=== PATIENT | female | born 1960 | race Caucasian/White ===

== ENCOUNTER → 2020-01-05 | Outpatient (CLI) | payer MEDICAID, MEDICARE ==
[~2020-01-05] MED LIST: ACET-2267 PO; ASPI-9 PO; ASPI325T32 PO; ATOR40TA70 PO; AZIT250T12 PO; FLUO20CA46 PO; IBUP-30 PO; METO-333 PO; OMEP20CA18 PO; OMEP20TA7 PO; OXYC-471 PO; RT-ALBUINH IH; SENN1TAB67 PO; TIOT18CA2 IH; TRZ50T PO
== END ==
LOC: CARD 12:30
PROVIDERS: ATTEND Internal Medicine Cardiovascular Disease
DX: I25.708 Atherosclerosis of coronary artery bypass graft(s), unspecified, with other forms of angina pectoris (principal); J44.9 Chronic obstructive pulmonary disease, unspecified; I10 Essential (primary) hypertension; E78.2 Mixed hyperlipidemia
CPT/HCPCS: 93306

== ENCOUNTER → 2020-01-16 | Outpatient (CLI) | payer MEDICAID, MEDICARE ==
[~2020-01-16] VITALS: Ht 172 cm; Wt 82.0 kg
[~2020-01-16] MED LIST changes: +CATHETER FLUSH 10 ML SYR IV PRN; +REGADENOSON 0.4 MG/5 ML SYR (LEXISCAN) IV ONE
[2020-01-16 09:33] VITALS: BP 127/74
--- NOTE | 2020-01-16 11:54 | Cardiology Stress Test Report ---
Stress Test Report Date of Procedure/Referring: Date of Procedure: Jan 16, 2020 PCP Irvin Gentile MD Admitting Physician Brenda Vitale DO Indications: Hypertension Baseline Heart Rate: 70 Baseline Blood Pressure: Blood Pressure Systolic: 127 Blood Pressure Diastolic: 74 Baseline Vitals Vital Signs Date Time Temp Pulse Resp B/P (MAP) Pulse Ox O2 Delivery O2 Flow Rate FiO2 01/16/20 09:33 71 127/74 (91) 99 Baseline EKG: Baseline EKG: normal sinus rhythm Summary After explaining the procedure to the patient, she signed a consent and then brought to the stress nuclear laboratory. Patient received 0.4 mg Lexiscan for stress test, ECG, heart rate and blood pressure were monitored continuously. Resting and stress dose of radio tracer were injected, imaging was acquired and reviewed in short axis, horizontal long axis and vertical long axis views. TID: 1.11 SSS: 5 SDS: 3 EF: 57 1. Patient tolerated Lexiscan well 2. Mild extracardiac attenuation affecting the quality of the images, mild decreased uptake involving the mid inferior wall with subtle reversibility. No significant ischemia or infarction was noted 3. Normal left ventricular size, EF 57 percent IRVIN GENTILE MD Jan 16, 2020 11:54
== END ==
PROVIDERS: ATTEND Internal Medicine Cardiovascular Disease
DX: I25.708 Atherosclerosis of coronary artery bypass graft(s), unspecified, with other forms of angina pectoris (principal); J44.9 Chronic obstructive pulmonary disease, unspecified; I10 Essential (primary) hypertension; E78.2 Mixed hyperlipidemia
CPT/HCPCS: 78452; 93017; A9502

== ENCOUNTER 2022-08-30 08:59 | Observation (INO) | payer MEDICARE, MEDICAID ==
[~2022-08-30] VITALS: Ht 170.2 cm; Wt 67.0 kg
[~2022-08-30 08:59] MED LIST changes: +ALBU8.5H6 IH; -CATHETER FLUSH 10 ML SYR IV PRN; -FLUO20CA46 PO; +FLUO20CA48 PO; +OMEP20TA56 PO; -OMEP20TA7 PO; -OXYC-471 PO; +OXYC1TAB11 PO; -REGADENOSON 0.4 MG/5 ML SYR (LEXISCAN) IV ONE; -RT-ALBUINH IH
[2022-08-30 09:42] LABS: BASOPHILS % (AUTO) 0 % (0-10); EOSINOPHILS % (AUTO) 0 % (0-10); HEMATOCRIT 35 % (35-52); HEMOGLOBIN 12.6 g/dL (11.5-16.0); LYMPHOCYTES # (AUTO) 1.2 10^3/uL (1.0-4.0); LYMPHOCYTES % (AUTO) 3 % (12-44); MEAN CORPUSCULAR HEMOGLOBIN 34 pg (25-34); MEAN CORPUSCULAR HGB CONC 36 g/dL (32-36); MEAN CORPUSCULAR VOLUME 94 fL (80-99); MEAN PLATELET VOLUME 9.6 fL (9.0-12.2); MONOCYTES # (AUTO) 0.1 10^3/uL (0.0-1.0); MONOCYTES % (AUTO) 0 % (0-12); NEUTROPHILS # (AUTO) 35.4 10^3/uL (1.8-7.8); NEUTROPHILS % (AUTO) 85 % (42-75); PLATELET COUNT 422 10^3/uL (130-400)
--- NOTE | 2022-08-30 09:44 | ED Abdominal Pain ---
General Chief Complaint: Abdominal/GI Problems Stated Complaint: DEHYDRATION, NO BM [id number] Nursing Triage Note: Patient c/o no BM x 6 days with nausea and vomiting starting yesterday. Patient states she has vomited x 4 in last 24 hrs. Patient states she has nausea medication, but states she vomits that up. Patient states she has tried some stool softners with no relief in symptoms. Patient states she is currently being treated for lung CA. Source of Information: Patient Exam Limitations: No Limitations History of Present Illness Date Seen by Provider: Aug 30, 2022 Time Seen by Provider: 09:22 Initial Comments This 61-year-old woman presents to the emergency room with complaints of severe abdominal pain and vomiting over the past 2 days. She has been constipated with small hard stools recently and has not produced a bowel movement in perhaps up to 6 days. 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 She received chemotherapy treatments earlier this week. This was her second round of treatment. She has Zofran and Compazine but has not been able to swallow them today. She feels her abdomen is bloated. She feels dehydrated and mucous membranes are pasty. Allergies and Home Medications Allergies Coded Allergies: Penicillins (Verified Allergy, Severe, 04/11/15) latex (Verified Allergy, Intermediate, RASH, 02/29/16) Patient states that the area of skin where the latex touches for long periods of time, peels, oozes and itches. Patient Home Medication List Home Medication List Reviewed: Yes Albuterol Sulfate (Ventolin Hfa) 90 Mcg Hfa.aer.ad, 2 PUFF PUFF PRN, (Reported) Entered as Reported by: CHENCHO PHILLIPS on 08/30/22 1549 Last Action: Reviewed Aspirin (Aspirin EC) 325 Mg Tablet.dr, 325 MG PO HS, (Reported) Entered as Reported by: DARREN RAMESH on 04/12/15 0839 Last Action: Reviewed Atorvastatin Calcium (Atorvastatin Calcium) 10 Mg Tablet, 10 MG PO HS, (Reported) Entered as Reported by: CHENCHO PHILLIPS on 08/30/22 1535 Last Action: Reviewed Fluticasone/Salmeterol (Advair Hfa 115-21 Mcg Inhaler) 115 Mcg-21 Mcg/Actuation Hfa.aer.ad, 12 GM IH HS, (Reported) Entered as Reported by: CHENCHO PHILLIPS on 08/30/221548 Last Action: Reviewed Ibuprofen (Advil) 200 Mg Tablet, 400 MG PO BID PRN for PAIN, (Reported) Entered as Reported by: DARREN RAMESH on 04/12/15 0839 Last Action: Reviewed Lisinopril/Hydrochlorothiazide (Lisinopril-Hctz 20-12.5 mg Tab) 20 Mg-12.5 Mg Tablet, 1 EACH PO 1800, (Reported) Entered as Reported by: CHENCHO PHILLIPS on 08/30/22 153 Last Action: Edited Nicotine (Nicotine Patch) 21 Mg/24 Hour Patch.td24, 21 MG TD HS, (Reported) Entered as Reported by: CHENCHO PHILLIPS on 08/30/22 154 Last Action: Reviewed Ondansetron HCl (Ondansetron HCl) 8 Mg Tablet, 8 MG PO 8-12 HR PRN for NAUSEA/VOMITING, (Reported) Entered as Reported by: CHENCHO PHILLIPS on 08/30/22 154 Last Action: Reviewed Prochlorperazine Maleate (Compazine) 10 Mg Tablet, 10 MG PO Q4-6, (Reported) Entered as Reported by: CHENCHO PHILLIPS on 08/30/221532 Last Action: Reviewed Trazodone HCl (Trazodone HCl) 50 Mg Tablet, 50 MG PO HS, (Reported) Entered as Reported by: CHENCHO PHILLIPS on 08/30/22 154 Last Action: Reviewed Umeclidinium [place] (Incruse Ellipta) 62.5 Mcg/Actuation Blst.w.dev, 1 MCG IH HS, (Reported) Entered as Reported by: CHENCHO PHILLIPS on 08/30/22 155 Last Action: Reviewed Discontinued Medications Acetaminophen (Tylenol Extra Strength) 500 Mg Tablet, 500-1,000 MG PO Q6H PRN for PAIN, (Reported) Discontinued Reason: No Longer Taking Entered as Reported by: DARREN RAMESH on 02/29/16 1006 Last Action: Discontinued Albuterol Sulfate (Ventolin Hfa) 8.5 Gm Hfa.aer.ad, 1-2 PUFF IH Q4H PRN for SHORTNESS OF BREATH, (Reported) Discontinued Reason: No Longer Taking Entered as Reported by: DARREN RAMESH on 02/29/16 1006 Last Action: Discontinued Atorvastatin Calcium (Atorvastatin Calcium) 40 Mg Tablet, 40 MG PO 1700, (Reported) Discontinued Reason: No Longer Taking Entered as Reported by: DARYN PATE on 04/11/151555 Last Action: Discontinued Metoprolol Tartrate (Metoprolol Tartrate) 25 Mg Tablet, 12.5 MG PO BID, (Reported) Discontinued Reason: No Longer Taking Entered as Reported by: DARREN RAMESH on 02/29/16 0959 Last Action: Discontinued Tiotropium [place] (Spiriva) 1 Inh Aerp, 1 CAP IH DAILY, (Reported) Discontinued Reason: No Longer Taking Entered as Reported by: DARYN PATE on 04/11/151555 Last Action: Discontinued Review of Systems Review of Systems Constitutional: no symptoms reported EENTM: No Symptoms Reported Respiratory: See HPI Cardiovascular: No Symptoms Reported Gastrointestinal: See HPI Genitourinary: Other (Dark urine) Musculoskeletal: no symptoms reported Skin: no symptoms reported Endocrine: No Symptoms Reported Hematologic/Lymphatic: No Symptoms Reported Past Yrvgzpd-Jfjxgs-Ixhpmr Hx Patient Social History Tobacco Use?: No Smoking Status: Former Smoker Use of E-Cig and/or Vaping dev: No Substance use?: Yes Substance type: Marijuana Alcohol Use?: No Immunizations Up To Date Tetanus Booster (TDap): Less than 5yrs PED Vaccines UTD: No Influenza Vaccine Up-to-Date: No; Not Current Seasonal Allergies Seasonal Allergies: Yes Past Medical History Surgeries: Yes Cardiac, CABG, Hysterectomy, Oophorectomy, Orthopedic Respiratory: Yes COPD Currently Using CPAP: No Currently Using BIPAP: No Cardiac: Yes Coronary Artery Disease, High Cholesterol Neurological: No 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 Disorders: No WINERY CELLAR HAND History: Hysterectomy Gastrointestinal: Yes Gastroesophageal Reflux, Ulcer Musculoskeletal: No Endocrine: No HEENT: No Cancer: Yes Brain (From a lung primary), Lung Anxiety, PTSD, Depression Adverse Reaction/Blood Tranf: No Family Medical History Congenital disease Congenital heart disease Diabetes mellitus G8 BROTHER FH: congestive heart failure 19 FATHER 19 MOTHER G8 BROTHER Physical Exam Vital Signs Vital Signs - First Documented 08/30/22 08/30/22 09:05 14:46 Temp 36.2 Pulse 74 Resp 14 B/P (MAP) 107/81 (90) Pulse Ox 96 O2 Delivery Room Air O2 Flow Rate 2.00 Capillary Refill : Height/Weight/BMI Height: 5'10.00" Weight: 153lbs. 0.0oz. 69.597111ui; 22.00 BMI Method:Stated General Appearance: WD/WN, no apparent distress HEENT: PERRL/EOMI, normal ENT inspection, other (Mucous membranes pasty. Significant dental decay) Neck: normal inspection Respiratory: lungs clear, normal breath sounds, no respiratory distress Cardiovascular: regular rate, rhythm, no edema, no murmur Gastrointestinal: normal bowel sounds, soft, distended, tenderness (Significant tenderness to percussion throughout the abdomen) Extremities: normal inspection, no pedal edema Neurologic/Psychiatric: no motor/sensory deficits, alert, normal mood/affect Skin: normal color, warm/dry Progress/Results/Core Measures Results/Orders Lab Results Laboratory Tests Test 08/30/22 09:30 08/30/22 10:45 Range/Units White Blood Count 41.4 *H 4.3-11.0 10^3/uL Red Blood Count 3.76 L 3.80-5.11 10^6/uL Hemoglobin 12.6 11.5-16.0 g/dL Hematocrit 35 35-52 % Mean Corpuscular Volume 94 80-99 fL Mean Corpuscular Hemoglobin 34 25-34 pg Mean Corpuscular Hemoglobin Concent 36 32-36 g/dL Red Cell Distribution Width 13.3 10.0-14.5 % Platelet Count 422 H 130-400 10^3/uL Mean Platelet Volume 9.6 9.0-12.2 fL Immature Granulocyte % (Auto) 11 % Neutrophils (%) (Auto) 85 H 42-75 % Lymphocytes (%) (Auto) 3 L 12-44 % Monocytes (%) (Auto) 0 0-12 % Eosinophils (%) (Auto) 0 0-10 % Basophils (%) (Auto) 0 0-10 % Neutrophils # (Auto) 35.4 H 1.8-7.8 10^3/uL Lymphocytes # (Auto) 1.2 1.0-4.0 10^3/uL Monocytes # (Auto) 0.1 0.0-1.0 10^3/uL Eosinophils # (Auto) 0.0 0.0-0.3 10^3/uL Basophils # (Auto) 0.0 0.0-0.1 10^3/uL Immature Granulocyte # (Auto) 4.7 H 0.0-0.1 10^3/uL Neutrophils % (Manual) 92 % Lymphocytes % (Manual) 7 % Monocytes % (Manual) 0 % Eosinophils % (Manual) 0 % Basophils % (Manual) 0 % Band Neutrophils 1 % Blood Morphology Comment NORMAL Sodium Level 130 L 135-145 MMOL/L Potassium Level 3.3 L 3.6-5.0 MMOL/L Chloride Level 93 L 98-107 MMOL/L Carbon Dioxide Level 26 21-32 MMOL/L Anion Gap 11 5-14 MMOL/L Blood Urea Nitrogen 12 7-18 MG/DL Creatinine 0.76 0.60-1.30 MG/DL Estimat Glomerular Filtration Rate 90 BUN/Creatinine Ratio 16 Glucose Level 107 H 70-105 MG/DL Calcium Level 9.8 8.5-10.1 MG/DL Corrected Calcium 9.7 8.5-10.1 MG/DL Magnesium Level 1.8 1.6-2.4 MG/DL Total Bilirubin 1.1 H 0.1-1.0 MG/DL Aspartate Amino Transf (AST/SGOT) 38 H 5-34 U/L Alanine Aminotransferase (ALT/SGPT) 59 H 0-55 U/L Alkaline Phosphatase 175 H 40-136 U/L C-Reactive Protein High Sensitivity 1.63 H 0.00-0.50 MG/DL Total Protein 8.6 H 6.4-8.2 GM/DL Albumin 4.1 3.2-4.5 GM/DL Lipase 12 8-78 U/L Urine Color YELLOW Urine Clarity CLEAR Urine pH 6.5 5-9 Urine Specific [place] 1.010 L 1.016-1.022 Urine Protein NEGATIVE NEGATIVE Urine Glucose (UA) NEGATIVE NEGATIVE Urine Ketones 1+ H NEGATIVE Urine Nitrite NEGATIVE NEGATIVE Urine Bilirubin NEGATIVE NEGATIVE Urine Urobilinogen 2.0 < = 1.0 MG/DL Urine Leukocyte Esterase NEGATIVE NEGATIVE Urine RBC (Auto) NEGATIVE NEGATIVE Urine RBC NONE /HPF Urine WBC RARE /HPF Urine Squamous Epithelial Cells RARE /HPF Urine Crystals NONE /LPF Urine Bacteria TRACE /HPF Urine Casts NONE /LPF Urine Mucus SMALL H /LPF Urine Culture Indicated NO My Orders Orders - MARILUZ DICKSON MD Ondansetron Injection (Zofran Injectio (08/30/22 09:45) Cbc With Automated Diff (08/30/22 09:35) Comprehensive Metabolic Panel (08/30/22 09:35) Hs C Reactive Protein (08/30/22 09:35) Lipase (08/30/22 09:35) Magnesium (08/30/22 09:35) Ua Culture If Indicated (08/30/22 09:35) Ed Iv/Invasive Line Start (08/30/22 09:35) Lactated Ringers (Lr 1000 Ml Iv Solution (08/30/22 09:45) Fentanyl Inj (Sublimaze Injection) (08/30/22 09:45) Manual Differential (08/30/22 09:30) Ct Abdomen/Pelvis W (08/30/22 10:21) Iohexol Injection (Omnipaque 350 Mg/Ml 1 (08/30/22 10:30) Received Contrast (Hold Metformin- Contr (08/30/22 10:30) Ns (Ivpb) (Sodium Chloride 0.9% Ivpb Bag (08/30/22 10:30) Lidocaine 2% Viscous 15 Ml (Xylocaine Vi (08/30/22 12:00) Ketorolac Injection (Toradol Injection) (08/30/22 12:00) Fentanyl Inj (Sublimaze Injection) (08/30/22 13:45) Medications Given in ED Current Medications Medications Dose Ordered Sig/Dexter Route Start Time Stop Time Status Last Admin Dose Admin Fentanyl Citrate 50 mcg ONCE ONCE IVP 08/30/22 09:45 08/30/22 09:46 DC 08/30/22 09:45 50 MCG Fentanyl Citrate 50 mcg ONCE ONCE IVP 08/30/22 13:45 08/30/22 13:46 DC 08/30/22 13:55 50 MCG Iohexol 100 ml ONCE ONCE IV 08/30/22 10:30 08/30/22 10:31 DC 08/30/22 10:33 78 ML Ketorolac Tromethamine 30 mg ONCE ONCE IVP 08/30/22 12:00 08/30/22 12:01 DC 08/30/22 12:06 30 MG Lactated Ringer's 1,000 ml @ 0 mls/hr Q0M ONCE IV 08/30/22 09:45 08/30/22 09:46 DC 08/30/22 09:45 0 MLS/HR Lidocaine HCl 5 ml ONCE ONCE MM 08/30/22 12:00 08/30/22 12:01 DC 08/30/22 12:09 5 ML Ondansetron HCl 8 mg ONCE ONCE IVP 08/30/22 09:45 08/30/22 09:46 DC 08/30/22 09:46 8 MG Sodium Chloride 100 ml ONCE ONCE IV 08/30/22 10:30 08/30/22 10:31 DC 08/30/22 10:33 80 ML Vital Signs/I&O 08/30/22 08/30/22 09:05 14:46 Temp 36.2 Pulse 74 55 Resp 14 14 B/P (MAP) 107/81 (90) 116/76 Pulse Ox 96 96 O2 Delivery Room Air Nasal Cannula O2 Flow Rate 2.00 Blood Pressure Mean: 90 Progress Progress Note #1: Time: 11:03 Progress Note Patient was interviewed and examined. She was found to have significant abdominal tenderness to light percussion. Labs were obtained. Marked leukocytosis of 41,000 was noted. CMP was grossly unremarkable, and there were no major electrolyte abnormalities. Lipase and CRP were unremarkable. Sodium and potassium were both slightly low. Pain was treated with fentanyl and nausea was treated with Zofran. Pain was later treated with Toradol as well. Further evaluation of her abdominal pain and leukocytosis is being pursued with CT of the abdomen and pelvis. Labs have been obtained, reviewed, and interpreted by me. CBC was notable for marked leukocytosis. Progress Note #2: Progress Note No emergent acute abnormalities were found on a CT of the abdomen and pelvis. CT was viewed by me. By my interpretation calcified gallstones were appreciated without evidence of cholecystitis as there was no pericholecystic fluid or gallbladder wall thickening. No other inflammatory conditions were identified. Formed stool was noted throughout the colon suggesting constipation. Radiologist's report was reviewed and correlated well with my interpretation. I discussed the case with Dr. Patrick who recommended manual disimpaction followed by soapsuds enemas. Patient consented to the manual disimpaction. Patient received Toradol and fentanyl prior to the disimpaction. I was able to extract a significant amount of hard stool from the rectum manually. Viscous lidocaine was used for lubrication to help with pain control. Patient felt some relief of pressure and was satisfied with the disimpaction. She was admitted for further observation and supportive care. Diagnostic Imaging Diagonstic Imaging: CT Plain Films/CT/US/NM/MRI: abdomen, pelvis Comments NAME: ANNAMARIENYU [facility] MED REC#: [id number] PT STATUS: REG ER : 1960 PHYSICIAN: MARILUZ DICKSON MD ADMIT DATE: 08/30/22/ER Signed Date of Exam:08/30/22 CT ABDOMEN/PELVIS W PROCEDURE: CT abdomen and pelvis with contrast. TECHNIQUE: Multiple contiguous axial images were obtained through the abdomen and pelvis after administration of intravenous contrast. Auto Exposure Controls were utilized during the CT exam to meet ALARA standards for radiation dose reduction. All CT scans use one or more of the following dose optimizing techniques: automated exposure control, MA and/or KvP adjustment based on patient size and exam type or iterative reconstruction. DATE: August 30, 2022. COMPARISON: None. INDICATION: 61-year-old female, no bowel movement for 6 days. Nausea and vomiting. History of lung cancer. FINDINGS: The visualized portions of the lung bases are clear. The heart is not enlarged. There is no identified pericardial effusion. The liver is unremarkable in size and contour. There is a benign cyst in the left lobe of liver on axial image 42 measuring 10 mm in size. Internal attenuation measures 7 Hounsfield units. There is no otherwise identified liver lesion. The main, right, and left veins are patent. There is cholelithiasis without evidence of acute cholecystitis. There is no intrahepatic or extrahepatic bile duct dilation. The main pancreatic duct is not abnormally dilated. Unremarkable appearance of the pancreatic parenchyma. The spleen is normal in size. There is a low-attenuation in the left adrenal nodule on axial image 43 which measures 15 mm in size. Internal attenuation on this postcontrast study is 33 Hounsfield units which is indeterminate. Unremarkable appearance of the renal parenchyma. The urinary collecting systems are not distended. There is no identified renal or ureteral stone. Urinary bladder is unremarkable. There are pelvic calcifications compatible with phleboliths. The uterus is not seen and may be surgically absent. The intestinal tract is not distended. The appendix is unremarkable. There is a moderate volume colonic stool. There is no free intraperitoneal air. There is no drainable fluid collection. There is no sizable volume free fluid in the abdomen or pelvis. There are atherosclerotic calcifications. There is ectasia of the infrarenal abdominal aorta on axial image 82 measuring up to 2.3 cm in diameter. There is no identified abnormally enlarged lymph node in the abdomen or pelvis which meets CT size criteria for adenopathy. There are degenerative changes of the spine. IMPRESSION: CT ABDOMEN AND PELVIS. 1. No identified acute abnormality in the abdomen or pelvis. 2. Moderate to large volume colonic stool. 3. Cholelithiasis without evidence of acute cholecystitis. 4. Indeterminate 15 mm left adrenal nodule. If this is not of known etiology, nonemergent outpatient adrenal mass protocol CT or MRI without and with intravenous contrast would be recommended for further assessment. Dictated by: Dictated on workstation # [id number] Dict: 08/30/22 1044 Trans: 08/30/22 1116 [facility] [id number] Interpreted by: OMAYRA GROSS MD Electronically signed by: OMAYRA GROSS MD 08/30/22 1116 Departure Communication (Admissions) Time/Spoke to Admitting Phy: 13:30 Dr. Ace Time/Spoke to Consulting Phy: 12:36 Dr. Patrick Impression Primary Impression: Nausea and vomiting Qualified Codes: R11.2 - Nausea with vomiting, unspecified Additional Impressions: Constipation Qualified Codes: K59.00 - Constipation, unspecified Abdominal pain Qualified Codes: R10.84 - Generalized abdominal pain Leukocytosis Qualified Codes: D72.829 - Elevated white blood cell count, unspecified Small cell lung cancer Disposition: ADMITTED INPATIENT Condition: Improved Admissions Decision to Admit Reason: Admit from ER (General) Decision to Admit/Date: Aug 30, 2022 Time/Decision to Admit Time: 12:36 Departure-Patient Inst. Referrals: ANASTASIA SHARPE APRN (PCP) Primary Care Physician SHARA GASCA (Family) Primary Care Physician MARILUZ DICKSON MD Aug 30, 2022 09:44
[2022-08-30] MEDS ORDERED: fentaNYL INJ 100 MCG/2 ML AMP IVP ONE ×2 (09:45→13:45)
[2022-08-30] MEDS ORDERED: ONDANSETRON 4 MG/2 ML (SDV) Z0FRAN IVP ONE (09:45)
[2022-08-30] MEDS ORDERED: LACTATED RINGERS 1,000 ML IV ONE (09:45)
[2022-08-30 09:46] LABS: WHITE BLOOD COUNT 41.4 10^3/uL (4.3-11.0)
[2022-08-30 09:55] LABS: ALBUMIN 4.1 GM/DL (3.2-4.5); POTASSIUM 3.3 MMOL/L (3.6-5.0)
[2022-08-30 09:56] LABS: CALCIUM 9.8 MG/DL (8.5-10.1)
[2022-08-30 09:57] LABS: TOTAL PROTEIN 8.6 GM/DL (6.4-8.2)
[2022-08-30 09:59] LABS: BILIRUBIN,TOTAL 1.1 MG/DL (0.1-1.0)
[2022-08-30 10:01] LABS: CREATININE SERUM 0.76 MG/DL (0.60-1.30)
[2022-08-30 10:04] LABS: MAGNESIUM 1.8 MG/DL (1.6-2.4)
[2022-08-30 10:11] LABS: BAND NEUTROPHILS 1 %; BASOPHILS % (MANUAL) 0 %; EOSINOPHILS % (MANUAL) 0 %; LYMPHOCYTES % (MANUAL) 7 %; MONOCYTES % (MANUAL) 0 %; NEUTROPHILS % (MANUAL) 92 %; RBC MORPH NORMAL
[2022-08-30] MEDS ORDERED: NS 100 ML (IVPB) BAG IV ONE (10:30)
[2022-08-30] MEDS ORDERED: HOLD METFORMIN - RECEIVED CONTRAST 20 ML VIAL IV SCH (10:30)
[2022-08-30] MEDS ORDERED: IOHEXOL 350 MG/ML 100 ML (OMNIPAQUE 350) VIAL IV ONE (10:30)
[2022-08-30 10:55] LABS: BILIRUBIN,URINE NEGATIVE (NEGATIVE); CLARITY,URINE CLEAR; COLOR,URINE YELLOW; GLUCOSE, URINE (UA) NEGATIVE (NEGATIVE); KETONES,URINE 1+ (NEGATIVE); LEUKOCYTE ESTERASE ,URINE NEGATIVE (NEGATIVE); NITRITE,URINE NEGATIVE (NEGATIVE); PH,URINE 6.5 (5-9); PROTEIN,URINE NEGATIVE (NEGATIVE)
[2022-08-30 11:02] LABS: BACTERIA,URINE TRACE /HPF; SQUAMOUS EPITHELIAL CELL,UR RARE /HPF; WBC,URINE RARE /HPF
--- NOTE | 2022-08-30 11:04 | Diagnostic Imaging Report ---
PROCEDURE: CT abdomen and pelvis with contrast. TECHNIQUE: Multiple contiguous axial images were obtained through the abdomen and pelvis after administration of intravenous contrast. Auto Exposure Controls were utilized during the CT exam to meet ALARA standards for radiation dose reduction. All CT scans use one or more of the following dose optimizing techniques: automated exposure control, MA and/or KvP adjustment based on patient size and exam type or iterative reconstruction. DATE: August 30, 2022. COMPARISON: None. INDICATION: 61-year-old female, no bowel movement for 6 days. Nausea and vomiting. History of lung cancer. FINDINGS: The visualized portions of the lung bases are clear. The heart is not enlarged. There is no identified pericardial effusion. The liver is unremarkable in size and contour. There is a benign cyst in the left lobe of liver on axial image 42 measuring 10 mm in size. Internal attenuation measures 7 Hounsfield units. There is no otherwise identified liver lesion. The main, right, and left veins are patent. There is cholelithiasis without evidence of acute cholecystitis. There is no intrahepatic or extrahepatic bile duct dilation. The main pancreatic duct is not abnormally dilated. Unremarkable appearance of the pancreatic parenchyma. The spleen is normal in size. There is a low-attenuation in the left adrenal nodule on axial image 43 which measures 15 mm in size. Internal attenuation on this postcontrast study is 33 Hounsfield units which is indeterminate. Unremarkable appearance of the renal parenchyma. The urinary collecting systems are not distended. There is no identified renal or ureteral stone. Urinary bladder is unremarkable. There are pelvic calcifications compatible with phleboliths. The uterus is not seen and may be surgically absent. The intestinal tract is not distended. The appendix is unremarkable. There is a moderate volume colonic stool. There is no free intraperitoneal air. There is no drainable fluid collection. There is no sizable volume free fluid in the abdomen or pelvis. There are atherosclerotic calcifications. There is ectasia of the infrarenal abdominal aorta on axial image 82 measuring up to 2.3 cm in diameter. There is no identified abnormally enlarged lymph node in the abdomen or pelvis which meets CT size criteria for adenopathy. There are degenerative changes of the spine. IMPRESSION: CT ABDOMEN AND PELVIS. 1. No identified acute abnormality in the abdomen or pelvis. 2. Moderate to large volume colonic stool. 3. Cholelithiasis without evidence of acute cholecystitis. 4. Indeterminate 15 mm left adrenal nodule. If this is not of known etiology, nonemergent outpatient adrenal mass protocol CT or MRI without and with intravenous contrast would be recommended for further assessment. Dictated by: Dictated on workstation # [id number]
[2022-08-30] MEDS ORDERED: LIDOCAINE 2% VISCOUS 15 ML UDC MM ONE (12:00)
[2022-08-30] MEDS ORDERED: KETOROLAC 30 MG/ML VIAL IVP ONE (12:00)
[2022-08-30] MEDS ORDERED: ACETAMINOPHEN 500 MG TAB (TYLENOL) PO PRN (15:15)
[2022-08-30] MEDS ORDERED: LISI1TAB46 PO (15:33)
[2022-08-30] MEDS ORDERED: PROC-1 PO (15:33)
[2022-08-30] MEDS ORDERED: ATOR10TA66 PO (15:35)
[2022-08-30] MEDS ORDERED: ONDA-106 PO (15:41)
[2022-08-30] MEDS ORDERED: TRZ50T PO (15:41)
[2022-08-30] MEDS ORDERED: NICO-685 TD (15:49)
[2022-08-30] MEDS ORDERED: FLUT12AE4 IH (15:49)
[2022-08-30] MEDS ORDERED: ALBU8.5H6 PUFF (15:49)
[2022-08-30] MEDS ORDERED: UMEC62.5 IH (15:51)
[2022-08-30 15:52] VITALS: BP 123/58
[2022-08-30] MEDS: LACTATED RINGERS 1,000 ML IV SCH ×2 (15:55→21:32)
[2022-08-30 16:00] VITALS: BP 132/76
[2022-08-30] MEDS: ONDANSETRON 4 MG/2 ML (SDV) Z0FRAN IV PRN ×2 (16:04→20:40)
[2022-08-30] MEDS: polyethylene glycoL POWDER 17 GM (MIRALAX) PACK PO SCH ×2 (16:04→20:40)
[2022-08-30] MEDS: PROMETHAZINE INJ 25 MG/ML (PHENERGAN) AMP IV PRN (17:51)
[2022-08-30 19:49] VITALS: BP 146/73
[2022-08-30] MEDS: AtorvaSTATin TABLET 10 MG TABLET PO SCH (20:40)
[2022-08-30] MEDS ORDERED: ADVAIR HFA 115/21 MCG INHALER 8 GM IH SCH (21:00)
[2022-08-30] MEDS: FLUTICASONE/VILANTEROL 100 MCG 14'S (BREO) IH SCH (22:05)
[2022-08-30 23:37] VITALS: BP 133/66
[2022-08-31] MEDS: ONDANSETRON 4 MG/2 ML (SDV) Z0FRAN IV PRN ×3 (03:38→17:32)
[2022-08-31] MEDS: LACTATED RINGERS 1,000 ML IV SCH ×3 (03:38→17:33)
[2022-08-31] MEDS: polyethylene glycoL POWDER 17 GM (MIRALAX) PACK PO SCH ×4 (03:38→20:35)
[2022-08-31 03:48] LABS: BASOPHILS % (AUTO) 0 % (0-10); EOSINOPHILS % (AUTO) 0 % (0-10); HEMATOCRIT 28 % (35-52); HEMOGLOBIN 9.9 g/dL (11.5-16.0); LYMPHOCYTES # (AUTO) 1.2 10^3/uL (1.0-4.0); LYMPHOCYTES % (AUTO) 6 % (12-44); MEAN CORPUSCULAR HEMOGLOBIN 33 pg (25-34); MEAN CORPUSCULAR HGB CONC 35 g/dL (32-36); MEAN CORPUSCULAR VOLUME 94 fL (80-99); MEAN PLATELET VOLUME 10.2 fL (9.0-12.2); MONOCYTES # (AUTO) 0.1 10^3/uL (0.0-1.0); MONOCYTES % (AUTO) 0 % (0-12); NEUTROPHILS # (AUTO) 17.5 10^3/uL (1.8-7.8); NEUTROPHILS % (AUTO) 81 % (42-75); PLATELET COUNT 292 10^3/uL (130-400); WHITE BLOOD COUNT 21.6 10^3/uL (4.3-11.0)
[2022-08-31 03:59] LABS: POTASSIUM 3.6 MMOL/L (3.6-5.0)
[2022-08-31 04:00] VITALS: BP 124/62
[2022-08-31 04:00] LABS: CALCIUM 8.9 MG/DL (8.5-10.1)
[2022-08-31 04:04] LABS: CREATININE SERUM 0.7 MG/DL (0.60-1.30)
[2022-08-31] MEDS: FLUTICASONE/VILANTEROL 100 MCG 14'S (BREO) IH SCH (07:19)
[2022-08-31 07:55] VITALS: BP 116/66
[2022-08-31] MEDS ORDERED: FLUTICASONE/VILANTEROL 100 MCG 14'S (BREO) IH SCH (08:00)
--- NOTE | 2022-08-31 11:13 | Consultation - Surgery ---
History of Present Illness History of Present Illness Patient Consulted On(sriram/time) 08/31/22 11:13 Date Seen by Provider: Aug 31, 2022 Time Seen by Provider: 11:13 History of Present Illness Consult requested by Dr. Ace for abdominal pain/constipation. Patient is a 61 year old female with lung cancer and mets to brain. She had radiation and now on chemo. She has had 6 days of now bowel movement. Having nausea and lower abdominal pain. Since being disimpacted in ED and having enemas she is feeling a little better. Less pain currently and nausea improving. Patient is getting enema now. Patient wbc down today compared to yesterday. Patient having hard stools. Previous she tried stools softener and miralax with no improvement at home. Had Ct abd/pelvis: 1. No identified acute abnormality in the abdomen or pelvis. 2. Moderate to large volume colonic stool. 3. Cholelithiasis without evidence of acute cholecystitis. 4. Indeterminate 15 mm left adrenal nodule. If this is not of known etiology, nonemergent outpatient adrenal mass protocol CT or MRI without and with intravenous contrast would be recommended for further assessment. Allergies and Home Medications Allergies Coded Allergies: Penicillins (Verified Allergy, Severe, 04/11/15) latex (Verified Allergy, Intermediate, RASH, 02/29/16) Patient states that the area of skin where the latex touches for long periods of time, peels, oozes and itches. Patient Home Medication List Home Medication List Reviewed: Yes Albuterol Sulfate (Ventolin Hfa) 90 Mcg Hfa.aer.ad, 2 PUFF PUFF PRN, (Reported) Entered as Reported by: CHENCHO PHILLIPS on 08/30/22 1549 Last Action: Reviewed Aspirin (Aspirin EC) 325 Mg Tablet., 325 MG PO HS, (Reported) Entered as Reported by: DARREN RAMESH on 04/12/15 0839 Last Action: Reviewed Atorvastatin Calcium (Atorvastatin Calcium) 10 Mg Tablet, 10 MG PO HS, (Repo rted) Entered as Reported by: CHENCHO PHILLIPS on 08/30/22 1535 Last Action: Reviewed Fluticasone/Salmeterol (Advair Hfa 115-21 Mcg Inhaler) 115 Mcg-21 Mcg/Actuation Hfa.aer.ad, 12 GM IH HS, (Reported) Entered as Reported by: CHENCHO PHILLIPS on 08/30/221548 Last Action: Reviewed Ibuprofen (Advil) 200 Mg Tablet, 400 MG PO BID PRN for PAIN, (Reported) Entered as Reported by: DARREN RAMESH on 04/12/15 0858 Last Action: Reviewed Lisinopril/Hydrochlorothiazide (Lisinopril-Hctz 20-12.5 mg Tab) 20 Mg-12.5 Mg Tablet, 1 EACH PO 1800, (Reported) Entered as Reported by: CHENCHO PHILLIPS on 08/30/22 153 Last Action: Edited Nicotine (Nicotine Patch) 21 Mg/24 Hour Patch.td24, 21 MG TD HS, (Reported) Entered as Reported by: CHENCHO PHILLIPS on 08/30/221548 Last Action: Continued Ondansetron HCl (Ondansetron HCl) 8 Mg Tablet, 8 MG PO 8-12 HR PRN for NAUSEA/VO MITING, (Reported) Entered as Reported by: CHENCHO PHILLIPS on 08/30/221540 Last Action: Reviewed Prochlorperazine Maleate (Compazine) 10 Mg Tablet, 10 MG PO Q4-6, (Reported) Entered as Reported by: CHENCHO PHILLIPS on 08/30/221532 Last Action: Reviewed Trazodone HCl (Trazodone HCl) 50 Mg Tablet, 50 MG PO HS, (Reported) Entered as Reported by: CHENCHO PHILLIPS on 08/30/221540 Last Action: Reviewed Umeclidinium [place] (Incruse Ellipta) 62.5 Mcg/Actuation Blst.w.dev, 1 MCG IH HS, (Reported) Entered as Reported by: CHENCHO PHILLIPS on 08/30/22 155 Last Action: Reviewed Discontinued Medications Acetaminophen (Tylenol Extra Strength) 500 Mg Tablet, 500-1,000 MG PO Q6H PRN for PAIN, (Reported) Discontinued Reason: No Longer Taking Entered as Reported by: DARREN RAMESH on 02/29/16 1006 Last Action: Discontinued Albuterol Sulfate (Ventolin Hfa) 8.5 Gm Hfa.aer.ad, 1-2 PUFF IH Q4H PRN for SHORTNESS OF BREATH, (Reported) Discontinued Reason: No Longer Taking Entered as Reported by: DARREN RAMESH on 02/29/16 1006 Last Action: Discontinued Atorvastatin Calcium (Atorvastatin Calcium) 40 Mg Tablet, 40 MG PO 1700, (Reported) Discontinued Reason: No Longer Taking Entered as Reported by: DARYN PATE on 04/11/15 1556 Last Action: Discontinued Metoprolol Tartrate (Metoprolol Tartrate) 25 Mg Tablet, 12.5 MG PO BID, (Reported) Discontinued Reason: No Longer Taking Entered as Reported by: DARREN RAMESH on 02/29/16 0959 Last Action: Discontinued Tiotropium [place] (Spiriva) 1 Inh Aerp, 1 CAP IH DAILY, (Reported) Discontinued Reason: No Longer Taking Entered as Reported by: DARYN PATE on 04/11/151555 Last Action: Discontinued Past Qngbtcj-Jgzrmb-Monqaq Hx Patient Social History Smoking Status: Former Smoker Type Used: Cigarettes Recent Hopitalizations: No Alcohol Use?: No Substance type: Marijuana Immunizations Up To Date Tetanus Booster (TDap): Less than 5yrs PED Vaccines UTD: No Seasonal Allergies Seasonal Allergies: Yes Surgeries History of Surgeries: Yes Surgeries: Cardiac, CABG, Hysterectomy, Oophorectomy, Orthopedic Respiratory History of Respiratory Disorde: Yes Respiratory Disorders: COPD Cardiovascular History of Cardiac Disorders: Yes Cardiac Disorders: Coronary Artery Disease, High Cholesterol Neurological History of Neurological Disord: No 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 System Hx 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 Disorders: 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 Gastrointestinal History of Gastrointestinal Di: Yes Gastrointestinal Disorders: Gastroesophageal Reflux, Ulcer Musculoskeletal History of Musculoskeletal Dis: No Endocrine History of Endocrine Disorders: No HEENT History of HEENT Disorders: No Cancer History of Cancer: Yes Cancer: Brain (From a lung primary), Lung Psychosocial Behavioral Health Disorders: Anxiety, PTSD, Depression Blood Transfusions Adverse Reaction to a Blood Tr: No Reviewed Nursing Assessment Reviewed/Agree w Nursing PMH: Yes Family Medical History Significant Family History: No Pertinent Family Hx Family Medial History: Congenital disease Congenital heart disease Diabetes mellitus G8 BROTHER FH: congestive heart failure 19 FATHER 19 MOTHER G8 BROTHER Review of Systems-General Constitutional: No diaphoresis; weakness EENTM: No blurred vision, No double vision Respiratory: No cough, No dyspnea on exertion Gastrointestinal: abdominal pain (lower left), nausea Genitourinary: No decreased output, No discharge Musculoskeletal: No back pain, No joint pain Skin: No change in color, No change in hair/nails Psychiatric/Neurological: Denies Anxiety, Denies Depressed, Denies Emotional Problems All Other Systems Reviewed Negative Unless Noted: Yes (Negative excepted noted.) Physical Exam-General Problems Physical Exam Vital Signs Vital Signs - First Documented 08/30/22 08/30/22 09:05 14:46 Temp 36.2 Pulse 74 Resp 14 B/P (MAP) 107/81 (90) Pulse Ox 96 O2 Delivery Room Air O2 Flow Rate 2.00 Capillary Refill : General Appearance: no apparent distress, thin HEENT: PERRL/EOMI, normal ENT inspection Neck: non-tender, supple Respiratory: chest non-tender, no respiratory distress, no accessory muscle use Cardiovascular: regular rate, rhythm, no JVD Gastrointestinal: soft, tenderness (minimal llq) Rectal: deferred (at this time doing enema) Back: no CVA tenderness, no vertebral tenderness Extremities: non-tender, normal inspection Neurologic/Psychiatric: alert, normal mood/affect, oriented x 3 Skin: normal color, warm/dry Lymphatic: no adenopathy Data Review Labs Laboratory Tests 08/31/22 03:32: White Blood Count 21.6H, Red Blood Count 3.00L, Hemoglobin 9.9#L, Hematocrit 28L , Mean Corpuscular Volume 94, Mean Corpuscular Hemoglobin 33, Mean Corpuscular Hemoglobin Concent 35, Red Cell Distribution Width 13.1, Platelet Count 292, Mean Platelet Volume 10.2, Immature Granulocyte % (Auto) 13, Neutrophils (%) (Auto) 81H, Lymphocytes (%) (Auto) 6L, Monocytes (%) (Auto) 0, Eosinophils (%) (Auto) 0, Basophils (%) (Auto) 0, Neutrophils # (Auto) 17.5H, Lymphocytes # (Auto) 1.2, Monocytes # (Auto) 0.1, Eosinophils # (Auto) 0.0, Basophils # (Auto) 0.0, Immature Granulocyte # (Auto) 2.8H, Sodium Level 135, Potassium Level 3.6, Chloride Level 101, Carbon Dioxide Level 28, Anion Gap 6, Blood Urea Nitrogen 9, Creatinine 0.70, Estimat Glomerular Filtration Rate 99, BUN/Creatinine Ratio 13, Glucose Level 77, Calcium Level 8.9 Assessment/Plan Assessment/Plan Assessment/Plan lung cancer c metastasis left lower quadrant abdominal pain constipation Cholelithiasis without evidence of acute cholecystitis. Indeterminate 15 mm left adrenal nodule patient was manual disimpaction by ED and having enemas, continue enema and bowel regimen Clear liquids cholelithiais i think is incidental finding Left adrenal nodule, all her recent imaging is at outside facility, she should follow up with her oncologist/regular physicians for further investigation on outpatient basis. TOMASZ MENDEZ DO Aug 31, 2022 11:13
--- NOTE | 2022-08-31 11:50 | History & Physical-Hospitalist ---
History of Present Illness HPI/Chief Complaint This 61-year-old woman presents to the emergency room with complaints of severe abdominal pain and vomiting over the past 2 days. She has been constipated with small hard stools recently and has not produced a bowel movement in perhaps up to 6 days. She is presently being treated for lung cancer with metastases to th e brain. She received chemotherapy treatments earlier this week. This was her second round of treatment. She has Zofran and Compazine but has not been able to swallow them today. She feels her abdomen is bloated. She feels dehydrated and mucous membranes are past. Upon my arrival the patient reports may have gotten some stool out hard with manual disimpaction she had a little more stool out with an enema and was in the process of receiving another enema. She is having less nausea but had received Zofran prior to my arrival. She denies night sweats chills or fever reports abdominal pain is not as bad as it was in the emergency room last night she is noted no blood in her stool. She received her second cycle of chemotherapy finishing 4 days ago on Thursday and did receive medication for her white count presumed to be one of the granulocyte colony-stimulating factors the likely cau se of her white count of 41,000 yesterday considering significant drop to Low 20,000 today. Patient denies cough has been abstinent from smoking for 3 weeks requesting continued nicotine patch which she has been taking 21 mg daily. She denied dysuria increased urinary frequency or headache has had no hematemesis. 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 Patients Allergies have been reviewed. Allergies Allergies Coded Allergies Penicillins (Verified Allergy, Severe, 04/11/15) latex (Verified Allergy, Intermediate, RASH, 02/29/16) Patient states that the area of skin where the latex touches for long periods of time, peels, oozes and itches. Past Lkftulk-Yxpwaw-Kymeux Hx Patient Social History Tobacco Use?: Yes Tobacco type used: Cigarettes Smoking Status: Former Smoker Use of E-Cig and/or Vaping dev: Unable to obtain Substance use?: Yes Substance type: Marijuana Additional substance use comme: TAKES 1/2 GUNNY AT HS Substance frequency: Daily Alcohol Use?: No Pt feels they are or have been: No Immunizations Up To Date Tetanus Booster (TDap): Unknown Hepatitis A: No Hepatitis B: No PED Vaccines UTD: No Seasonal Allergies Seasonal Allergies: Yes Current Status status: No status: No Advance Directives: No Communicates: Verbally Primary Language: Portuguese Preferred Spoken Language: Portuguese Is interpretation needed?: No Sensory deficits: Vision impairment, Hearing impairment Implanted or Applied Medical D: None, Port-a-cath Past Medical History Surgeries: Cardiac, CABG, Hysterectomy, Oophorectomy, Orthopedic COPD Currently Using CPAP: No Currently Using BIPAP: No Coronary Artery Disease, 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 Coronary Artery Disease with CABG x2 03/21/15 Dr. Khushboo DAIGLE 2. 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 ASA 325mg recommended 5. Hypotension- currently not tolerating beta felisha 6. COPD- was on home O2 after CABG. 7. THC use 8. Hyperlipidemia 9. 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 Cuello 2. Total Abdominal Hysterectomy with BSO 3. Right Wrist Tendon Repair Family Medical History Congenital disease Congenital heart disease Diabetes mellitus G8 BROTHER FH: congestive heart failure 19 FATHER 19 MOTHER G8 BROTHER Review of Systems Constitutional: see HPI Physical Exam Physical Exam Vital Signs Vital Signs - First Documented 08/30/22 08/30/22 09:05 14:46 Temp 36.2 Pulse 74 Resp 14 B/P (MAP) 107/81 (90) Pulse Ox 96 O2 Delivery Room Air O2 Flow Rate 2.00 Capillary Refill : Height, Weight, BMI Height: 5'10.00" Weight: 153lbs. 0.0oz. [id number]; 23.12 BMI Method:Stated General Appearance: No Apparent Distress, Chronically ill HEENT: Pale Conjunctivae (L), Pale Conjunctivae (R) Respiratory: Chest Non Tender, Lungs Clear, Normal Breath Sounds, No Accessory Muscle Use, No Respiratory Distress Cardiovascular: Regular Rate, Rhythm, No Edema, No Gallop, No JVD, No Murmur, Normal Peripheral Pulses Gastrointestinal: No Organomegaly, No Pulsatile Mass, Soft, Other (Diffuse tenderness reported bowel sounds not apparent but without significant distention during auscultation.) Neurologic/Psychiatric: Alert, Oriented x3 Results Results/Procedures Labs Laboratory Tests 08/30/22 09:30 08/31/22 03:32 Patient resulted labs reviewed. Assessment/Plan Admission Diagnosis 1. Postchemotherapy nausea vomiting and constipation with resultant dehydration. Patient denies any significant narcotic usage. Will add Senokot she will receive another enema continue IV fluids and antiemetics. 2. Leukocytosis likely related to granulocyte colony-stimulating factor therapy with significant reduction today we will repeat her counts tomorrow. 3. 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 4. Tobaccoism reported abstinence x3 weeks continue nicotine replacement. Admission Status: Observation LASHELL ACE MD Aug 31, 2022 11:50
[2022-08-31] MEDS ORDERED: SENNA W/DOCUSATE (SENOKOT S) TABLET PO NR (12:00)
[2022-08-31 12:49] VITALS: BP 114/62
[2022-08-31 16:11] VITALS: BP 119/58
[2022-08-31 19:54] VITALS: BP 129/61
[2022-08-31] MEDS: AtorvaSTATin TABLET 10 MG TABLET PO SCH (20:35)
[2022-08-31] MEDS: SENNA W/DOCUSATE (SENOKOT S) TABLET PO SCH (20:35)
[2022-08-31] MEDS: NICOTINE 21 MG (NICODERM) PATCH TD SCH (20:35)
[2022-08-31 23:14] VITALS: BP 121/72
[2022-09-01] VITALS (8 sets, daily range): BP systolic 112–145; BP diastolic 61–77
[2022-09-01] MEDS ORDERED: traZODone 50 MG (DESYREL) TAB PO ONE
[2022-09-01] MEDS: LACTATED RINGERS 1,000 ML IV SCH ×4 (00:15→21:19)
[2022-09-01] MEDS: polyethylene glycoL POWDER 17 GM (MIRALAX) PACK PO SCH ×4 (03:26→21:19)
[2022-09-01 05:44] LABS: BASOPHILS % (AUTO) 0 % (0-10); EOSINOPHILS % (AUTO) 0 % (0-10); HEMATOCRIT 28 % (35-52); HEMOGLOBIN 9.7 g/dL (11.5-16.0); LYMPHOCYTES # (AUTO) 1.3 10^3/uL (1.0-4.0); LYMPHOCYTES % (AUTO) 18 % (12-44); MEAN CORPUSCULAR HEMOGLOBIN 33 pg (25-34); MEAN CORPUSCULAR HGB CONC 34 g/dL (32-36); MEAN CORPUSCULAR VOLUME 97 fL (80-99); MEAN PLATELET VOLUME 11.2 fL (9.0-12.2); MONOCYTES # (AUTO) 0.2 10^3/uL (0.0-1.0); MONOCYTES % (AUTO) 3 % (0-12); NEUTROPHILS # (AUTO) 5.2 10^3/uL (1.8-7.8); NEUTROPHILS % (AUTO) 76 % (42-75); PLATELET COUNT 184 10^3/uL (130-400); WHITE BLOOD COUNT 6.9 10^3/uL (4.3-11.0)
[2022-09-01 05:55] LABS: ALBUMIN 3.1 GM/DL (3.2-4.5); POTASSIUM 3.9 MMOL/L (3.6-5.0)
[2022-09-01 05:57] LABS: CALCIUM 8.9 MG/DL (8.5-10.1)
[2022-09-01 05:58] LABS: TOTAL PROTEIN 6.5 GM/DL (6.4-8.2)
[2022-09-01 06:00] LABS: BILIRUBIN,TOTAL 0.8 MG/DL (0.1-1.0)
[2022-09-01 06:01] LABS: CREATININE SERUM 0.64 MG/DL (0.60-1.30)
[2022-09-01] MEDS: FLUTICASONE/VILANTEROL 100 MCG 14'S (BREO) IH SCH (06:21)
[2022-09-01] MEDS: ONDANSETRON 4 MG/2 ML (SDV) Z0FRAN IV PRN (06:34)
[2022-09-01] MEDS: SENNA W/DOCUSATE (SENOKOT S) TABLET PO SCH ×2 (08:28→21:19)
--- NOTE | 2022-09-01 10:18 | Diagnostic Imaging Report ---
INDICATION: Constipation AP view of the abdomen reveals [id number] amount of stool in the colon. There is no transition point to indicate an obstruction. There is no evidence of free intraperitoneal gas. Calcification in the right upper quadrant likely represents gallstone with numerous calcified phleboliths seen throughout the pelvis. There is aortoiliac atherosclerotic calcification. IMPRESSION: No evidence of acute abnormality. [id number] amount of stool throughout the colon. Dictated by: Dictated on workstation # [id number]
--- NOTE | 2022-09-01 10:56 | Progress Note ---
Subjective Subjective/Events-last exam States she is tolerating liquids, but no solid yet. Had small bowel movement this morning, feels she is getting little pieces at a time. Still very nauseated and worried about going home and having to come back right away. Objective Exam Last Set of Vital Signs Vital Signs Date Time Temp Pulse Resp B/P (MAP) Pulse Ox O2 Delivery O2 Flow Rate FiO2 09/01/22 08:00 36.4 53 18 117/72 (87) 93 Room Air 09/01/22 03:23 0.00 0.00 Capillary Refill : I&O Intake and Output 09/01/22 00:00 Intake Total 2080 ml Output Total 2600 ml Balance -520 ml Intake Oral 2080 ml Output Urine Total 2600 ml # Voids 3 # Bowel Movements 3 General: Alert, No Acute Distress Lungs: Clear to Auscultation Heart: Regular Rate, No Murmurs Abdomen: Normal Bowel Sounds, Soft, Other (diffuse marked ttp) Extremities: No Edema Neuro: Normal Speech Psych/Mental Status: Mental Status NL Results/Procedures Lab Laboratory Tests 09/01/22 05:25: White Blood Count 6.9, Red Blood Count 2.92L, Hemoglobin 9.7L, Hematocrit 28L, Mean Corpuscular Volume 97, Mean Corpuscular Hemoglobin 33, Mean Corpuscular Hemoglobin Concent 34, Red Cell Distribution Width 13.2, Platelet Count 184, Mean Platelet Volume 11.2, Immature Granulocyte % (Auto) 2, Neutrophils (%) (Auto) 76H, Lymphocytes (%) (Auto) 18, Monocytes (%) (Auto) 3, Eosinophils (%) (Auto) 0, Basophils (%) (Auto) 0, Neutrophils # (Auto) 5.2, Lymphocytes # (Auto) 1.3, Monocytes # (Auto) 0.2, Eosinophils # (Auto) 0.0, Basophils # (Auto) 0.0, Immature Granulocyte # (Auto) 0.1, Sodium Level 133L, Potassium Level 3.9, Chloride Level 104, Carbon Dioxide Level 23, Anion Gap 6, Blood Urea Nitrogen 7, Creatinine 0.64, Estimat Glomerular Filtration Rate 101, BUN/Creatinine Ratio 11, Glucose Level 81, Calcium Level 8.9, Corrected Calcium 9.6, Total Bilirubin 0.8, Aspartate Amino Transf (AST/SGOT) 38H, Alanine Aminotransferase (ALT/SGPT) 41, Alkaline Phosphatase 121, Total Protein 6.5, Albumin 3.1L Assessment/Plan Assessment/Plan (1) Constipation Status: Acute Assessment & Plan: Improving slowly, continue senna BID and miralax q6. Qualifiers: Qualified Codes: K59.00 - Constipation, unspecified (2) Nausea and vomiting Status: Acute Assessment & Plan: Supportive care with anti-emetics, IVF while intake poor. Qualifiers: Qualified Codes: R11.2 - Nausea with vomiting, unspecified (3) Small cell lung cancer Status: Acute Assessment & Plan: Following with Dr. Heller in [place], recently completed chemo cycle. (4) DVT prophylaxis Status: Acute Assessment & Plan: Enoxaparin ETTA CHONG MD Sep 01, 2022 10:55
[2022-09-01] MEDS ORDERED: ASPI-1238 PO (11:39)
[2022-09-01] MEDS ORDERED: LIDO30CR TP (11:50)
--- NOTE | 2022-09-01 12:51 | Progress Note - Surgery ---
Subjective Date Seen by a Provider: Sep 01, 2022 Time Seen by a Provider: 08:25 Subjective/Events-last exam Still with nausea, but states it's from her chemo. Still with abdominal pain llq but better overall. Having some bowel movements. Denies fever sweats chills shortness of breath or chest pain. Worried about going home. Objective Exam Vital Signs Date Time Temp Pulse Resp B/P (MAP) Pulse Ox O2 Delivery O2 Flow Rate FiO2 09/01/22 08:00 36.4 53 18 117/72 (87) 93 Room Air 09/01/22 08:00 Room Air 09/01/22 06:22 92 Room Air 09/01/22 03:23 36.4 56 18 112/61 (78) 97 Room Air 0.00 0.00 08/31/22 23:14 36.3 60 18 121/72 (88) 95 Room Air 0.00 0.00 08/31/22 20:30 Room Air 08/31/22 19:54 36.8 64 18 129/61 (83) 93 Room Air 08/31/22 16:11 37.4 55 18 119/58 (78) 93 Room Air I & O 09/01/22 07:00 Intake Total 2280 ml Output Total 1400 ml Balance 880 ml Capillary Refill : General Appearance: No Apparent Distress, Chronically ill HEENT: Pale Conjunctivae (L), Pale Conjunctivae (R) Respiratory: Chest Non Tender, Lungs Clear, Normal Breath Sounds, No Accessory Muscle Use, No Respiratory Distress Cardiovascular: Regular Rate, Rhythm, No JVD, Normal Peripheral Pulses Gastrointestinal: soft, tenderness (minimal llq) Neurologic/Psychiatric: Alert, Oriented x3 Skin: Normal Color, Warm/Dry Lymphatic: No Adenopathy Results Lab Laboratory Tests 09/01/22 05:25: White Blood Count 6.9, Red Blood Count 2.92L, Hemoglobin 9.7L, Hematocrit 28L, Mean Corpuscular Volume 97, Mean Corpuscular Hemoglobin 33, Mean Corpuscular Hemoglobin Concent 34, Red Cell Distribution Width 13.2, Platelet Count 184, Mean Platelet Volume 11.2, Immature Granulocyte % (Auto) 2, Neutrophils (%) (Auto) 76H, Lymphocytes (%) (Auto) 18, Monocytes (%) (Auto) 3, Eosinophils (%) (Auto) 0, Basophils (%) (Auto) 0, Neutrophils # (Auto) 5.2, Lymphocytes # (Auto) 1.3, Monocytes # (Auto) 0.2, Eosinophils # (Auto) 0.0, Basophils # (Auto) 0.0, Immature Granulocyte # (Auto) 0.1, Sodium Level 133L, Potassium Level 3.9, Chloride Level 104, Carbon Dioxide Level 23, Anion Gap 6, Blood Urea Nitrogen 7, Creatinine 0.64, Estimat Glomerular Filtration Rate 101, BUN/Creatinine Ratio 11, Glucose Level 81, Calcium Level 8.9, Corrected Calcium 9.6, Total Bilirubin 0.8, Aspartate Amino Transf (AST/SGOT) 38H, Alanine Aminotransferase (ALT/SGPT) 41, Alkaline Phosphatase 121, Total Protein 6.5, Albumin 3.1L Assessment/Plan Assessment/Plan Assessment/Plan lung cancer c metastasis left lower quadrant abdominal pain constipation Cholelithiasis without evidence of acute cholecystitis. Indeterminate 15 mm left adrenal nodule patient was manual disimpaction by ED and having enemas, continue enema and bowel regimen Clear liquids can try and advance diet cholelithiasis i think is incidental finding Left adrenal nodule, all her recent imaging is at outside facility, she should follow up with her oncologist/regular physicians for further investigation on outpatient basis. TOMASZ MENDEZ DO Sep 01, 2022 12:51
[2022-09-01] MEDS: PROMETHAZINE INJ 25 MG/ML (PHENERGAN) AMP IV PRN ×2 (13:01→21:19)
[2022-09-01] MEDS: ENOXAPARIN 40 MG/0.4 ML (LOVENOX) SYR SQ SCH (16:33)
[2022-09-01] MEDS ORDERED: POLY17PO54 PO (17:23)
[2022-09-01] MEDS ORDERED: SENN-271 PO (17:23)
[2022-09-01] MEDS: NICOTINE PATCH REMOVAL TP SCH (21:19)
[2022-09-01] MEDS: traZODone 50 MG (DESYREL) TAB PO SCH (21:19)
[2022-09-01] MEDS: NICOTINE 21 MG (NICODERM) PATCH TD SCH (21:19)
[2022-09-01] MEDS: AtorvaSTATin TABLET 10 MG TABLET PO SCH (21:19)
[2022-09-02] MEDS: polyethylene glycoL POWDER 17 GM (MIRALAX) PACK PO SCH ×4 (02:05→20:31)
[2022-09-02 03:06] VITALS: BP 121/64
[2022-09-02] MEDS: LACTATED RINGERS 1,000 ML IV SCH (04:02)
[2022-09-02 05:23] LABS: HEMATOCRIT 27 % (35-52); HEMOGLOBIN 9.3 g/dL (11.5-16.0); MEAN CORPUSCULAR HEMOGLOBIN 33 pg (25-34); MEAN CORPUSCULAR HGB CONC 34 g/dL (32-36); MEAN CORPUSCULAR VOLUME 95 fL (80-99); MEAN PLATELET VOLUME 10.3 fL (9.0-12.2); PLATELET COUNT 179 10^3/uL (130-400); WHITE BLOOD COUNT 3.4 10^3/uL (4.3-11.0)
[2022-09-02 05:51] LABS: POTASSIUM 4.1 MMOL/L (3.6-5.0)
[2022-09-02 05:52] LABS: CALCIUM 8.7 MG/DL (8.5-10.1)
[2022-09-02 05:56] LABS: CREATININE SERUM 0.6 MG/DL (0.60-1.30)
[2022-09-02 07:26] VITALS: BP 125/62
[2022-09-02] MEDS: FLUTICASONE/VILANTEROL 100 MCG 14'S (BREO) IH SCH (07:30)
[2022-09-02] MEDS: SENNA W/DOCUSATE (SENOKOT S) TABLET PO SCH ×2 (09:33→20:31)
--- NOTE | 2022-09-02 09:43 | Progress Note - Hospitalist ---
Subjective HPI/CC On Admission Date Seen by Provider: Sep 02, 2022 Time Seen by Provider: 10:00 This 61-year-old woman presents to the emergency room with complaints of severe abdominal pain and vomiting over the past 2 days. She has been constipated with small hard stools recently and has not produced a bowel movement in perhaps up to 6 days. 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 She received chemotherapy treatments earlier this week. This was her second round of treatment. She has Zofran and Compazine but has not been able to swallow them today. She feels her abdomen is bloated. She feels dehydrated and mucous membranes are past. Upon my arrival the patient reports may have gotten some stool out hard with manual disimpaction she had a little more stool out with an enema and was in the process of receiving another enema. She is having less nausea but had received Zofran prior to my arrival. She denies night sweats chills or fever reports abdominal pain is not as bad as it was in the emergency room last night she is noted no blood in her stool. She received her second cycle of chemotherapy finishing 4 days ago on Thursday and did receive medication for her white count presumed to be one of the granulocyte colony-stimulating factors the likely cause of her white count of 41,000 yesterday considering significant drop to Low 20,000 today. Patient denies cough has been abstinent from smoking for 3 weeks requesting continued nicotine patch which she has been taking 21 mg daily. She denied dysuria increased urinary frequency or headache has had no hematemesis. 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 Subjective/Events-last exam Patient doing well Able to eat a little bit Bowels started moving yesterday but needs more laxatives We will Hep-Lock IV fluid and ambulate Patient scared to go home Review of Systems General: Fatigue, Malaise Objective Exam Vital Signs Vital Signs Date Time Temp Pulse Resp B/P (MAP) Pulse Ox O2 Delivery O2 Flow Rate FiO2 09/02/22 19:21 36.6 62 18 126/75 (92) 94 Room Air 09/02/22 03:06 0.00 0.00 Capillary Refill : General Appearance: No Apparent Distress, WD/WN, Chronically ill Respiratory: Lungs Clear, Normal Breath Sounds Cardiovascular: Regular Rate, Rhythm Neurologic/Psychiatric: Alert, Oriented x3 Results/Procedures Lab Laboratory Tests 09/02/22 05:15 Patient resulted labs reviewed. Assessment/Plan Assessment and Plan Assess & Plan/Chief Complaint (1) Constipation Status: Acute Assessment & Plan: Improving slowly, continue senna BID and miralax q6. Qualifiers: Qualified Codes: K59.00 - Constipation, unspecified (2) Nausea and vomiting Status: Acute Assessment & Plan: Supportive care with anti-emetics, IVF while intake poor. Qualifiers: Qualified Codes: R11.2 - Nausea with vomiting, unspecified (3) Small cell lung cancer Status: Acute Assessment & Plan: Following with Dr. Heller in [place], recently completed chemo cycle. (4) DVT prophylaxis Status: Acute Assessment & Plan: Enoxaparin RU JO DO Sep 02, 2022 09:43
[2022-09-02] MEDS ORDERED: LACTULOSE SYRUP 10GM/15ML (ENULOSE) 30ML UDC PO NR (10:00)
--- NOTE | 2022-09-02 10:14 | Physical Therapy Evaluation ---
PT Evaluation-General Medical Diagnosis Admission Date Aug 30, 2022 at 14:47 Medical Diagnosis: dehydration/no BM's for several days Onset Date: Aug 30, 2022 Therapy Diagnosis Therapy Diagnosis: debility Height/Weight Height (Feet): 5 Height (Inches): 10.00 Weight (Pounds): 153 Weight (Ounces): 0.0 Precautions Precautions/Isolations: Standard Precautions Referral Physician: Bere Reason for Referral: Evaluation/Treatment Medical History Pertinent Medical History: CABG, CAD, COPD Additional Medical History lung cancer Current History ER secondary to abdominal pain Reviewed History: Yes Social History Home: Apartment Current Living Status: Alone PT Steps Into Home: 1 Prior Prior Level of Function SCALE: Activities may be completed with or without assistive devices. 7-Mamuiphnzg-ursdtar completes the activity by him/herself with no assistance from a helper. 5-Set-up or Clean-up Assistance-helper sets up or cleans up; patient completes activity. [place] assists only prior to or following the activity. 4-Supervision or Touching Assistance-helper provides verbal cues and/or touching/steadying and/or contact guard assistance as patient completes activity. Assistance may be provided throughout the activity or intermittently. 3-Partial/Moderate Assistance-helper does LESS THAN HALF the effort. Charlotte lifts, holds or supports trunk or limbs, but provides less than half the effort. 2-Substantial/Maximal Assistance-helper does MORE THAN HALF the effort. [place] lifts or holds trunk or limbs and provides more than half the effort. 2-Cnjsdynbu-ifbfaq does ALL the effort. Patient does none of the effort to complete the activity. Or, the assistance of 2 or more helpers is required for the patient to complete the activity. If activity was not attempted, code reason: 7-Patient Refused. 9-Not Applicable-not attempted and the patient did not perform the activity befo re the current illness, exacerbation or injury. 10-Not Attempted due to Environmental Limitations-(lack of equipment, weather re straints, etc.). 88-Not Attempted due to Medical Conditions or Safety Concerns. Bed Mobility: 6 Transfers (B,C,W/C): 6 Gait: 6 Stairs: 6 Indoor Mobility (Ambulation): Independent Stairs: Independent Prior Devices Use: None PT Evaluation-Current Subjective Patient agree to PT. Objective Patient Orientation: Normal For Age ROM/Strength ROM Lower Extremities bilateral LE WFL Strength Lower Extremities 4/5 grossly bilateral LE Integumentary/Posture Bowel Incontinence: No Bladder Incontinence: No Posture WFL Neuromuscular (Tone, Coordination, Reflexes) grossly intact with all Sensory Vision: Functional Hearing: Functional Transfers Lying to Sitting/Side of Bed(Q: 6 Sit to Stand (QC): 6 Chair/Put-ar-Oywlk Xfer(QC): 6 Gait Mode of Locomotion: Walk Anticipated Mode of Locomotion: Walk Walk 10 feet (QC): 6 Walk 50 ft with 2 Turns(QC): 6 Walk 150 ft (QC): 6 Distance: 300' Gait Assistive Device: None Stairs #of Steps: 4 1 Step (curb) (QC): 6 4 Steps (QC): 6 Balance Sitting Static: Normal Sitting Dynamic: Normal Standing Static: Normal Standing Dynamic: Normal Assessment/Needs Patient is currently at independent PLOF with all gross motor skills safely and does not require skilled PT intervention at this time. Patient has been instructed to ambulate PRN independently in hallway. RN notified. Rehab Potential: Fair PT Plan Treatment/Plan Treatment Plan: Discontinue PT Treatment Duration: Sep 02, 2022 Frequency: 1 time per week Estimated Hrs Per Day: .25 hour per day Patient and/or Family Agrees t: Yes Time Time In: 955 Time Out: 1004 DATE: Sep 02, 2022 Total Billed Treatment Time: 9 Total Billed Treatment 1 visit EVModC 9 min PAOLA SIMS PT Sep 02, 2022 10:14
[2022-09-02 11:44] VITALS: BP 121/60
--- NOTE | 2022-09-02 15:15 | Progress Note - Surgery ---
Subjective Date Seen by a Provider: Sep 02, 2022 Time Seen by a Provider: 15:12 Subjective/Events-last exam Feels more bloated today. Bm yesterday. Less nausea. Denies fever sweats chills shortness of breath or chest pain. Objective Exam Vital Signs Date Time Temp Pulse Resp B/P (MAP) Pulse Ox O2 Delivery O2 Flow Rate FiO2 09/02/22 11:44 36.2 61 18 121/60 (80) 96 Room Air 09/02/22 08:00 Room Air 09/02/22 07:31 93 Room Air 09/02/22 07:26 36.0 57 18 125/62 (83) 95 Room Air 09/02/22 03:06 36.8 61 16 121/64 (83) 95 Room Air 0.00 0.00 09/01/22 23:00 36.2 55 16 137/63 (87) 95 Room Air 0.00 0.00 09/01/22 21:00 Room Air 09/01/22 20:01 36.5 62 16 122/72 (89) 91 Room Air 09/01/22 16:43 36.2 55 18 130/75 (93) 95 Room Air I & O 09/02/22 07:00 Intake Total 3520 ml Balance 3520 ml Capillary Refill : General Appearance: No Apparent Distress, Chronically ill HEENT: PERRL/EOMI, Pale Conjunctivae (L), Pale Conjunctivae (R) Neck: Normal Inspection, Non Tender Respiratory: Chest Non Tender, No Accessory Muscle Use, No Respiratory Distress Cardiovascular: Regular Rate, Rhythm, No JVD, Normal Peripheral Pulses Gastrointestinal: soft, tenderness (minimal llq- less than yesterday) Neurologic/Psychiatric: Alert, Oriented x3 Skin: Normal Color, Warm/Dry Lymphatic: No Adenopathy Results Lab Laboratory Tests 09/02/22 05:15: White Blood Count 3.4L, Red Blood Count 2.85L, Hemoglobin 9.3L, Hematocrit 27L, Mean Corpuscular Volume 95, Mean Corpuscular Hemoglobin 33, Mean Corpuscular Hemoglobin Concent 34, Red Cell Distribution Width 13.0, Platelet Count 179, Mean Platelet Volume 10.3, Sodium Level 136, Potassium Level 4.1, Chloride Level 105, Carbon Dioxide Level 25, Anion Gap 6, Blood Urea Nitrogen 5L, Creatinine 0.60, Estimat Glomerular Filtration Rate 102, BUN/Creatinine Ratio 8, Glucose Level 79, Calcium Level 8.7 Assessment/Plan Assessment/Plan Assessment/Plan lung cancer c metastasis left lower quadrant abdominal pain constipation Cholelithiasis without evidence of acute cholecystitis. Indeterminate 15 mm left adrenal nodule patient was manual disimpaction by ED and having enemas, continue enema and bowel regimen Tolerating diet continue bowel regimen cholelithiasis i think is incidental finding Left adrenal nodule, all her recent imaging is at outside facility, she should follow up with her oncologist/regular physicians for further investigation on outpatient basis. TOMASZ MENDEZ DO Sep 02, 2022 15:15
[2022-09-02 15:20] VITALS: BP 106/64
[2022-09-02] MEDS: ENOXAPARIN 40 MG/0.4 ML (LOVENOX) SYR SQ SCH (15:20)
[2022-09-02] MEDS: ONDANSETRON 4 MG/2 ML (SDV) Z0FRAN IV PRN (15:25)
[2022-09-02] MEDS: KETOROLAC 30 MG/ML VIAL IV PRN (15:25)
[2022-09-02] MEDS ORDERED: NS IV 500 ML 500 ML IV SCH (16:00)
[2022-09-02 19:21] VITALS: BP 126/75
[2022-09-02] MEDS: AtorvaSTATin TABLET 10 MG TABLET PO SCH (20:31)
[2022-09-02] MEDS: LACTULOSE SYRUP 10GM/15ML (ENULOSE) 30ML UDC PO SCH (20:31)
[2022-09-02] MEDS: traZODone 50 MG (DESYREL) TAB PO SCH (20:31)
[2022-09-02] MEDS: NICOTINE 21 MG (NICODERM) PATCH TD SCH (20:33)
[2022-09-02] MEDS: NICOTINE PATCH REMOVAL TP SCH (20:33)
[2022-09-02 23:13] VITALS: BP 127/72
[2022-09-03 03:27] VITALS: BP 121/65
[2022-09-03] MEDS: polyethylene glycoL POWDER 17 GM (MIRALAX) PACK PO SCH ×2 (03:47→07:53)
[2022-09-03] MEDS: FLUTICASONE/VILANTEROL 100 MCG 14'S (BREO) IH SCH (07:39)
[2022-09-03] MEDS: LACTULOSE SYRUP 10GM/15ML (ENULOSE) 30ML UDC PO SCH (07:53)
[2022-09-03] MEDS: SENNA W/DOCUSATE (SENOKOT S) TABLET PO SCH (07:53)
[2022-09-03 07:55] VITALS: BP 109/60
[2022-09-03] MEDS: ONDANSETRON 4 MG/2 ML (SDV) Z0FRAN IV PRN (07:59)
[2022-09-03] MEDS: KETOROLAC 30 MG/ML VIAL IV PRN (07:59)
--- NOTE | 2022-09-03 09:26 | Discharge Summary ---
Discharge Summary Hospital Course Problems/Diagnosis: (1) Constipation Status: Acute Assessment & Plan: s/p manual disimpaction in ER followed by enemas, folowed by laxatives iwth improvement. On d/c continued on senna BID and miralax BID, discussed can increase miralax to QID if needed which is what she was receiving inpatient. Qualifiers: Qualified Codes: K59.00 - Constipation, unspecified (2) Nausea and vomiting Status: Acute Assessment & Plan: Supportive care with anti-emetics Qualifiers: Qualified Codes: R11.2 - Nausea with vomiting, unspecified (3) Small cell lung cancer Status: Acute Assessment & Plan: Following with Dr. Heller in [place], recently completed chemo cycle. Hospital Course Date of Admission: Aug 30, 2022 at 14:47 Admission Diagnosis : Family Physician/Provider: Jay Gonzalez Date of Discharge: 09/03/22 Discharge Diagnosis: See problem list Hospital Course: See problem list Labs and Pending Lab Test: Home Meds Active Polyethylene Glycol 3350 17 Gram Powd.pack 17 Gm PO BID PRN Stool Softener-Laxative Tablet (Sennosides/Docusate Sodium) 8.6 Mg-50 Mg Tablet 1 Ea PO BID Reported Lidocaine-Prilocaine Cream (Lidocaine/Prilocaine) 2.5 %-2.5 % Cream..g. 1 Applic TP UD USES ON CHEMOTHERAPY PORT Aspirin EC (Aspirin) 81 Mg Tablet.dr 81 Mg PO HS Incruse Ellipta (Umeclidinium [place]) 62.5 Mcg/Actuation Blst.w.dev 1 Mcg IH HS Nicotine Patch (Nicotine) 21 Mg/24 Hour Patch.td24 21 Mg TD HS Advair Hfa 115-21 Mcg Inhaler (Fluticasone/Salmeterol) 115 Mcg-21 Mcg/Actuation Hfa.aer.ad 1 Puff IH DAILY Ventolin Hfa (Albuterol Sulfate) 90 Mcg Hfa.aer.ad 2 Puff PUFF Q4H PRN Trazodone HCl 50 Mg Tablet 50 Mg PO HS Ondansetron HCl 8 Mg Tablet 8 Mg PO Q8H PRN Atorvastatin Calcium 10 Mg Tablet 10 Mg PO HS Lisinopril-Hctz 20-12.5 mg Tab (Lisinopril/Hydrochlorothiazide) 20 Mg-12.5 Mg Tablet 1 Each PO HS Advil (Ibuprofen) 200 Mg Tablet 600-800 Mg PO Q8H PRN TAKES 3-4 (200MG) TABS Assessment/Pt DC Instructions Follow up with Oncology on Thursday as scheduled. Follow up with Nohemy Pineda at [facility] as scheduled (within 2 weeks). Discharge Diet: No Restrictions Activity as Tolerated: Yes Discharge Physical Examination Allergies: Coded Allergies: Penicillins (Verified Allergy, Severe, 04/11/15) latex (Verified Allergy, Intermediate, RASH, 02/29/16) Patient states that the area of skin where the latex touches for long periods of time, peels, oozes and itches. General Appearance: No Apparent Distress Respiratory: Lungs Clear, Normal Breath Sounds Cardiovascular: Regular Rate, Rhythm, No Murmur Gastrointestinal: Normal Bowel Sounds Extremity: No Pedal Edema Skin: Normal Color, Warm/Dry Neurologic/Psychiatric: Alert, Normal Mood/Affect ETTA CHONG MD Sep 03, 2022 09:26
[2022-09-03 11:51] VITALS: BP 109/60
== END 2022-09-03 09:21 | disposition home or self-care (01) ==
LOC: EDUNIT# 08:59 → ER 09:02 → UNDOADMOB 14:47 → 4TH 14:47 → UNDODISOB 09-03 11:52
PROVIDERS: ADMIT Internal Medicine; ATTEND Family Medicine
DX: K59.00 Constipation, unspecified (principal); E86.0 Dehydration; R11.2 Nausea with vomiting, unspecified; C34.90 Malignant neoplasm of unspecified part of unspecified bronchus or lung; C79.31 Secondary malignant neoplasm of brain; D72.829 Elevated white blood cell count, unspecified; K80.20 Calculus of gallbladder without cholecystitis without obstruction; E27.9 Disorder of adrenal gland, unspecified; Z87.891 Personal history of nicotine dependence; Z79.1 Long term (current) use of non-steroidal anti-inflammatories (NSAID); Z79.82 Long term (current) use of aspirin; Z79.899 Other long term (current) drug therapy; Z88.0 Allergy status to penicillin
CPT/HCPCS: 74018; 74177; 80048 ×2; 80053 ×2; 81000; 83690; 83735; 85007; 85025 ×2; 85027 ×2; 86141; 94640 ×4; 94760 ×4; 96361 ×2; 96372 ×2; 96374; 96375 ×2; 96376 ×6; 97162; 99284; G0378; 36415